=== PATIENT | female | born 1980 | race Caucasian/White ===

== ENCOUNTER 2020-11-28 08:15 | Emergency (ER) | payer OTHER, SELFPAY ==
[2020-11-28] MEDS ORDERED: Promethazine 25 MG/ML SDV IM ONE (08:40)
[2020-11-28] MEDS ORDERED: predniSONE 20 MG Tab PO ONE (08:40)
[2020-11-28] MEDS ORDERED: HYDROmorphone 1 MG/ML Syringe IM ONE (08:40)
--- NOTE | 2020-11-28 08:46 | EDM.PDOC ---
ED HPI GENERAL MEDICAL PROBLEM - General Chief Complaint: Back Pain or Injury Stated Complaint: HIP PAIN Time Seen by Provider: 11/28/20 08:30 Source of Information: Reports: Patient History Limitations: Reports: No Limitations - History of Present Illness INITIAL COMMENTS - FREE TEXT/NARRATIVE: 39-year-old female presents to the ED with left lower back pain rating down her posterior left buttock down to her left foot. Pain is constant. It is perhaps a little better when she is lying in it is made worse by standing and weightbearing. No patient apparently has a hairline fracture in one of the bones in her lower left foot after an inversion injury and is in a cast boot brace. Since using the cast boot brace she is developed increasing left hip buttock and posterior thigh leg pain. She states she has known to have a herniated disc in her back with intermittent problems in the same leg. No problems with bowel or bladder control. Pain is constant throbbing and unc omfortable enough to interfere with her ability to sleep. She is using meloxicam 15 mg daily. She is also been using Flexeril tablets 10 mg at at bedtime. Onset: Gradual Onset Date: 11/22/20 Duration: Day(s):, Constant, Getting Worse Location: Reports: Back (Left lower back pain rating down the posterior left buttock and down her leg to her left foot.), Lower Extremity, Left Quality: Reports: Ache, Burning, Throbbing Severity: Moderate (70 8 out of 10.) Improves with: Reports: Rest Worsens with: Reports: Other (Weightbearing) Context: Denies: Activity, Exercise, Lifting, Sick Contact, Trauma Associated Symptoms: Reports: Malaise. Denies: Confusion, Chest Pain, Cough, cough w sputum, Diaphoresis, Fever/Chills (Due to poor sleep), Headaches, Loss of Appetite, Nausea/Vomiting, Rash, Seizure, Shortness of Breath, Syncope, Weakness Treatments CERAMIC TILER: Reports: NSAIDS (Meloxicam 15 mg daily) Left Lower Back Pain Score (Numeric/FACES): 9 - Related Data Allergies Allergy/AdvReac Type Severity Reaction Status Date / Time amoxicillin Allergy Cannot Verified 11/28/20 08:29 Remember Home Meds: Home Meds oxyCODONE HCl/Acetaminophen [Percocet 5-325 mg Tablet] 1 - 2 each PO Q4H PRN #20 tablet 11/28/20 [Rx] predniSONE [Prednisone] 20 mg PO BID #18 tablet 11/28/20 [Rx] Past Medical History Musculoskeletal History: Reports: Fibromyalgia, Other (See Below) (Chronic low back pain with intermittent radiculopathy left lower extremity. Apparently he has a herniated disc on imaging studies) - Past Surgical History Neurological Surgical History: Reports: Other (See Below) Other Neurological Surgeries/Procedures: neck surgery Social & Family History - Tobacco Use Tobacco Use Status *Q: Never Tobacco User Second Hand Smoke Exposure: No - Caffeine Use Caffeine Use: Reports: None - Recreational Drug Use Recreational Drug Use: No - Living Situation & Occupation Living situation: Reports: Single Occupation: Employed ED ROS GENERAL - Review of Systems Review Of Systems: See Below Constitutional: Reports: Malaise, Fatigue (Not sleeping properly). Denies: Fever, Chills HEENT: Reports: No Symptoms Respiratory: Reports: No Symptoms Cardiovascular: Reports: No Symptoms Endocrine: Reports: Fatigue GI/Abdominal: Reports: Constipation (Occasional problems with constipation) : Reports: No Symptoms Musculoskeletal: Reports: Neck Pain, Shoulder Pain, Back Pain, Other Skin: Reports: No Symptoms (Has chronic pain syndrome i.e. fibromyalgia) Neurological: Reports: Difficulty Walking (Due to being in a cast boot brace left side). Denies: Confusion, Dizziness, Headache, Seizure, Syncope, Weakness Psychiatric: Reports: No Symptoms Hematologic/Lymphatic: Reports: No Symptoms Immunologic: Reports: No Symptoms ED EXAM,LOWER BACK PAIN/INJURY - Physical Exam Exam: See Below Exam Limited By: No Limitations General Appearance: Alert, WD/WN, No Apparent Distress, Other (Temperature is 36.1. Heart rate at the bedside was 110 and sinus. Respiratory 16 with O2 sats of 96% room air. BP 121/76.) Eye Exam: Bilateral Eye: Normal Inspection, PERRL Back Exam: Other (Examination of her back reveals very minimal paraspinal muscle spasm. Pain primarily over the L5-S1 facet joint left side less so on the right side. Both sacroiliac joints are very tender in the upper two thirds of the joint. Worse on the left as compared to the right) Extremities: Normal Inspection, Normal Range of Motion, Non-Tender, Other (Cast boot brace left foot.) Neurological: Alert, Normal Mood/Affect, CN II-XII Intact, Oriented x 3, Straight Leg Raise (L) (Straight leg raise was asked to greater than 60 degrees bilaterally with no evidence of nerve root entrapment. This suggest current pain is referred from lower back and SI joint.). No: Normal Gait (Telogen gait due to wearing cast boot brace.) DTR - Lower Extremities: 2+: Ankle (R), 3+: Knee (R), Knee (L) Psychiatric: Normal Affect, Normal Mood Skin Exam: Warm, Dry, Intact, Normal Color, No Rash Course - Vital Signs Last Recorded V/S: Last Vital Signs Temp 36.1 C 11/28/20 08:27 Pulse 110 H 11/28/20 08:27 Resp 16 11/28/20 08:27 BP 121/76 11/28/20 08:27 Pulse Ox 96 11/28/20 08:27 - Orders/Labs/Meds Meds: Medications Discontinued Medications Generic Name Dose Route Start Last Admin Trade Name Tu PRN Reason Stop Dose Admin Hydromorphone HCl 1 mg 11/28/20 08:40 Hydromorphone 1 Mg/Ml Syringe IM 11/28/20 08:41 ONETIME ONE Prednisone 30 mg 11/28/20 08:40 Prednisone 20 Mg Tab PO 11/28/20 08:41 ONETIME ONE Promethazine HCl 25 mg 11/28/20 08:40 Promethazine 25 Mg/Ml Sdv IM 11/28/20 08:41 ONETIME ONE - Radiology Interpretation Free Text/Narrative:: 39-year-old female presents to the ED for evaluation of left low back pain rating down her left posterior buttock and left leg she claims to her foot. She has had similar symptoms in the past. Currently walking with an antalgic gait with a cast boot brace on her left foot due to a hairline fracture apparently in her ankle after an inversion injury. Pain started about a week ago after using the cast boot brace. Examination reveals minimal left-sided paraspinal muscle spasm. Pain over the L5-S1 facet joints bilaterally pain in the to upper two thirds of bilateral sacroiliac joints. Straight leg raising to 60 degrees was negative with negative bowstring sign. Reflexes intact. Pain appears to be referred pain from the SI joint and facet joint in her left lower back. She will continue to use meloxicam 15 mg once daily for the next 10 to 12 days. Placed on prednisone 30 mg given in the ED and then 20 mg twice daily breakfast and supper for 6 days then once in the morning for another 6 days. Percocet tabs 5/ 325 mg strength 1 or 2 every 4-6 hours for pain relief primarily for bedtime use as she wants to try and attend work as she is seated as a cashier supervisor. She will follow up with her primary care provider within the next week. Departure - Departure Time of Disposition: 08:41 Disposition: Home, Self-Care 01 Condition: Fair Clinical Impression: Acute low back pain with left-sided sciatica Qualifiers: Back pain laterality: left Qualified Code(s): M54.42 - Lumbago with sciatica, left side - Discharge Information *PRESCRIPTION DRUG MONITORING PROGRAM REVIEWED*: Not Applicable *COPY OF PRESCRIPTION DRUG MONITORING REPORT IN PATIENT STEFANIE: Not Applicable Prescriptions: oxyCODONE HCl/Acetaminophen [Percocet 5-325 mg Tablet] 1 - 2 each PO Q4H PRN #20 tablet PRN Reason: pain relief. predniSONE [Prednisone] 20 mg PO BID #18 tablet Instructions: Sciatica, [id number], Pain Medicine Instructions, [id number] Referrals: Teresa Crowe MD [Primary Care Provider] - Forms: ED Department Discharge Additional Instructions: Evaluation in the emergency room today in regards to diffuse left low back pain with referred pain into the left buttock and down the leg to the foot suggesting nerve root irritation in your lower back. By history of a confirmed herniated disc in your lower back which acts up periodically. As we discussed it is likely aggravated by wearing a cast boot brace for fracture in your left lower extremity. Examination reveals pain throughout the sacroiliac joints bilaterally. Mild pain over the L5-S1 facet joint on the left side. Straight leg raising was negative bilaterally suggesting no significant nerve root entrapment at this time. Treatment is to reduce the inflammation around the nerve and in the sacroiliac joint. Continued use meloxicam 15 mg once daily every morning which you already have at home. Use this for the minimum of the next 10 days. Use prednisone 20 mg twice daily usually with breakfast and supper for the next 6 days and then 1 tablet in the morning for another 6 days. First tablets were given in the ED. Next tablet would be due after supper tonight. Percocet tabs 5/325 mg strength 1 or 2 every 4-6 hours necessary for pain relief primarily at bedtime to aid sleep. If you need more than 4 tablets a day you may develop constipation from pain medication. Suggest using MiraLAX powder 17 g once daily to prevent constipation. Follow-up with your primary care physician if not markedly improved in 5-7 days time. Sepsis Event Note (ED) - Evaluation Sepsis Screening Result: No Definite Risk - Focused Exam Vital Signs: Vital Signs Temp Pulse Resp BP Pulse Ox 11/28/20 08:27 36.1 C 110 H 16 121/76 96
== END 2020-11-28 09:50 | disposition home or self-care (01) ==
LOC: JD.ED 08:15
DX: M54.42 Lumbago with sciatica, left side (principal); Z88.0 Allergy status to penicillin
CPT/HCPCS: 96372; 99283; J1170; J2550; J7512